=== PATIENT | male | born 1995 ===

== ENCOUNTER 2017-03-28 11:50 | Emergency (ER) | payer BC ==
[2017-03-28] MEDS ORDERED: NS 0.9% 1000 ML* 1,000 ML IV ONE (13:04)
[2017-03-28] MEDS ORDERED: Ondansetron INJ* 2 MG/ML VIAL IV ONE (13:05)
--- NOTE | 2017-03-28 13:52 | UC ---
UC General HPI - HPI Summary HPI Summary: Pt presnets with c/o generalized malasie, nausea, vomiting intermittent X 4 days. Pt reports that he drank ETOH the night of 03/23/17 and woke with a hangover. Pt stated that he began with stomachache, weakness, nausea vomiting and occasional loose stools. Pt reports that over the last few weeks he has been smoking more than normal amount of marijuana. He states that he smokes, "regular weed" and "wax" . - History of Current Complaint Chief Complaint: UCGI Stated Complaint: VOMITTING Time Seen by Provider: 03/28/17 13:03 Hx Obtained From: Patient Onset/Duration: Sudden Onset, Lasting Days, Still Present, Worse Since - onset Timing: Constant Onset Severity: Mild Current Severity: Moderate Associated Signs & Symptoms: Positive: Abdominal Pain, Diarrhea - occasional, Vomiting, Weakness - Allergy/Home Medications Allergies/Adverse Reactions: Allergies Allergy/AdvReac Type Severity Reaction Status Date / Time Peanut Oil Allergy Unknown rash, Verified 03/28/17 13:06 throat itches Home Medications: Home Medications Anti-Anxiety Med 1 tab PO DAILY 03/28/17 [History] Antiacid Med ? Rx Name 03/28/17 [History] PMH/Surg Hx/FS Hx/Imm Hx Previously Healthy: Yes - Surgical History Surgical History: Yes Surgery Procedure, Year, and Place: TONSILLECTOMY - Family History Known Family History: Positive: Cardiac Disease - Social History Occupation: Student - [employer] Alcohol Use: Weekly Alcohol Amount: 2-3 TIMES A WEEK Substance Use Type: Marijuana Smoking Status (MU): Current Some Day Smoker Have You Smoked in the Last Year: No - marijuana Review of Systems Constitutional: Fever, Chills, Fatigue Skin: Negative Eyes: Negative ENT: Negative Respiratory: Negative Cardiovascular: Negative Gastrointestinal: Abdominal Pain, Vomiting, Diarrhea, Nausea Genitourinary: Negative Motor: Negative Neurovascular: Negative Musculoskeletal: Myalgia - generalized Neurological: Negative Psychological: Negative Is Patient Immunocompromised?: No All Other Systems Reviewed And Are Negative: Yes Physical Exam Triage Information Reviewed: Yes Appearance: Ill-Appearing Vital Signs: Initial Vital Signs Temp 97.7 F 03/28/17 13:08 Pulse 81 03/28/17 13:08 Resp 24 03/28/17 13:08 BP 128/93 03/28/17 13:08 Pulse Ox 100 03/28/17 13:08 Vital Signs Reviewed: Yes Eye Exam: Normal ENT Exam: Normal Neck exam: Normal Respiratory Exam: Normal Cardiovascular Exam: Normal Abdominal Exam: Other - generalized abdominal pain Bowel Sounds: Positive: Hypoactive Musculoskeletal Exam: Normal Neurological Exam: Normal Psychological Exam: Normal Skin Exam: Other - pale Course/Dx - Course Course Of Treatment: I discussed wiht the pt my concern for his use of large amount of marijuana daily and ETOH multiple days during the week. I discussed with him the need to seek medical as soon as possible if symptoms do not improve upon discharge. Pt verbalized understanding and agreed to plan of care. - Differential Dx - Multi-Symptom Provider Diagnoses: GAstroenteritis. poisoning? marijuana? Discharge - Discharge Plan Condition: Stable Disposition: HOME Prescriptions: Ondansetron [Zofran 8 MG Odt] 8 mg PO Q8H PRN #15 tab PRN Reason: Nausea Ranitidine HCl [Zantac 150 Maximum Streng] 150 mg PO Q12H #10 tab Patient Education Materials: Gastroenteritis (ED) Forms: *School Release Referrals: [facility] [Outside] Additional Instructions: Please follow up with your PCP or return to clinic as needed. Please note that if you have been advised to seek medical attention immediately at the closest Emergency department if your symptoms do not improve.
[2017-03-28] MEDS ORDERED: NS 0.9% IV ONE (15:25)
[2017-03-28 15:26] VITALS: BP 151/95
[2017-03-28] MEDS ORDERED: Famotidine IV* 10 MG/ML 2 ML (20 mg) ONE (15:26)
[2017-03-28 19:04] LABS: Hematocrit 43 % (42-52); Mean Corpuscular HGB Conc 35 g/dl (31-36); Mean Corpuscular Hemoglobin 31 pg (27-31); Mean Corpuscular Volume 89 fL (80-94); Mean Platelet Volume 9 um3 (7.4-10.4); Red Blood Count 4.85 10^6/ul (4.0-5.4); Red Cell Distribution Width 13 % (10.5-15); White Blood Count 9.2 10^3/ul (3.5-10.8)
[2017-03-28 19:16] LABS: Albumin 5.1 g/dL (3.2-5.2); Calcium 10.3 mg/dL (8.6-10.3); EGFR African American 134.9 (>60); EGFR Non-African American 104.9 (>60); Globulin 2.4 g/dL (2-4); Potassium 3.8 mmol/L (3.5-5.0); Total Bilirubin 2.1 mg/dL (0.2-1.0); Total Protein 7.5 g/dL (6.4-8.9)
== END 2017-03-28 16:16 | disposition home or self-care (01) ==
LOC: UCCORT 11:50
DX: K52.9 Noninfective gastroenteritis and colitis, unspecified (principal); Z91.010 Allergy to peanuts; F12.90 Cannabis use, unspecified, uncomplicated
CPT/HCPCS: 36415; 80053; 80307; 81003; 85025; 96361; 96365; 96374; 96376; 99202; G0463; J2405

== ENCOUNTER 2017-04-03 13:29 | Emergency (ER) | payer BC | END 2017-04-03 15:17 | disposition left against medical advice (07) | LOC: UCCORT 13:29 | DX: R11.10 Vomiting, unspecified (principal); Z53.21 Procedure and treatment not carried out due to patient leaving prior to being seen by health care provider ==